=== PATIENT | female | born 1985 | race Caucasian/White ===

== ENCOUNTER 2016-12-01 06:26 | Inpatient (IN) | payer OTHER ==
[2016-12-01] MEDS ORDERED: BRETHINE IVP PRN (07:44)
[2016-12-01] MEDS ORDERED: MINERAL OIL PO PRN (07:44)
[2016-12-01] MEDS ORDERED: BRETHINE SUB-Q PRN (07:44)
[2016-12-01] MEDS ORDERED: ePHEDrine SULFATE IV PRN ×2 (07:44→10:22)
--- NOTE | 2016-12-01 07:55 | History and Physical Report ---
History of Present Illness Date of examination: 12/01/16 Date of admission: 12/01/2016 Chief complaint: Contractions since 2:00 AM this morning. History of present illness: 30 year old presents to L&D at 40 weeks gestation in active labor. Patient reports regular contractions began at 02:00 AM. Patient denies leaking of fluid or vaginal bleeding. Patient reports active movement. EDC 2016. Patient transferred her care from [place] to [facility] during this . Previous LTCS in 2010 in [place]. Previous successful in [place] in 2015. Past History Past Medical History: no pertinent history Past Surgical History: section [employer] History: other (negative) Family/Genetic History: none Social history: , lives with family. denies: smoking, alcohol abuse - Obstetrical History Expected Date of Delivery: 12/01/16 Actual Gestation: 40 Week(s) 0 Day(s) : 4 Para: 2 Hx # Term Pregnancies: 2 Number of Pregnancies: 1 Spontaneous Abortions: 1 Induced : 0 Number of Living Children: 2 Medications and Allergies Allergies Allergy/AdvReac Type Severity Reaction Status Date / Time No Known Allergies Allergy Verified 12/01/16 07:54 Review of Systems Constitutional: no fever, no chills Ears, nose, mouth and throat: no headache Cardiovascular: no edema Respiratory: no cough Gastrointestinal: no nausea, no vomiting Genitourinary: no vaginal bleeding, no leakage of fluid, no genital sores - Vital Signs Vital signs: Vital Signs Pulse BP 90 108/65 12/01/16 07:16 12/01/16 07:16 Temp Pulse Resp BP Pulse Ox 90 108/65 12/01/16 07:16 12/01/16 07:16 - Physical Exam Breasts: Positive: deferred Cardiovascular: Regular rate, No murmurs Lungs: Positive: Clear to auscultation Abdomen: Positive: normal appearance, soft. Negative: distention, tenderness, guarding Genitourinary (Female): Positive: normal external genitalia Vagina: Negative: discharge Cervix: Positive: other (SVE by RN: 5-6/90/-2/cephalic) Uterus: Positive: enlarged. Negative: tender Extremities: Positive: normal. Negative: edema - Obstetrical FHR: category 1 Uterine Contraction Monitor Mode: External Cervical Dilatation: 5.5 (Exam by RN upon patient's arrival to L&D) Cervical Effacement Percentage: 90 station: -2 Uterine Contraction Pattern: Regular Uterine Contraction Intensity: Moderate Results All other labs normal. Assessment and Plan A: at 40 weeks gestation. Previous low transverse section. Previous successful . GBS negative. Active labor. P: Admit. Continuous EFM. Anticipate . Informed Dr. Quezada about patient and active labor status, previous section at 32 weeks gestation, previous successful at term. Dr. Quezada states OK to allow patient to labor and attempt vaginal .
[2016-12-01 08:16] LABS: Hematocrit 35.8 % (30.3-42.9); Hemoglobin 11.9 gm/dl (10.1-14.3); Mean Corpuscular HGB Conc 33 % (30-34); Mean Corpuscular Hemoglobin 30 pg (28-32); Mean Corpuscular Volume 89 fl (79-97); Platelet Count 217 K/mm3 (140-440); Red Blood Count 4.04 M/mm3 (3.65-5.03); Red Cell Distribution Width 14.2 % (13.2-15.2); White Blood Count 9.2 K/mm3 (4.5-11.0)
--- NOTE | 2016-12-01 08:48 | Event Note ---
Date: 12/01/16 SVE /-.
[2016-12-01] MEDS: LACTATED RINGERS 1,000 ML IV SCH ×3 (09:00→10:57)
[2016-12-01] MEDS ORDERED: NARCAN 2 MG/2 ML IV PRN (10:22)
[2016-12-01] MEDS ORDERED: fentaNYL-BUPIV 2 MCG/ML-0.125% 200 MCG/100 ML BAG EPIDURAL SCH (11:00)
--- NOTE | 2016-12-01 11:11 | Event Note ---
Date: 12/01/16 AROM performed to augment labor. Moderate amount of clear fluid obtained. SVE 7 cm, 8 cm with contraction. Baby coming down well with contraction. Patient is comfortable as she has just received epidural. Contractions are regular and moderate. Uterus palpates soft between contractions. Reassuring heart rate tracing.
[2016-12-01] MEDS: PITOCin/NS 20 UNIT/1000ML DRIP 20 UNITS/1,000 ML BAG IV SCH ×2 (15:10→16:30)
[2016-12-01] MEDS ORDERED: TUCKS PAD TP PRN (16:31)
[2016-12-01] MEDS ORDERED: DERMOPLAST TP PRN (16:31)
[2016-12-01] MEDS ORDERED: LANSINOH TP PRN ×2 (16:31)
--- NOTE | 2016-12-01 16:44 | Procedure Note ---
OB Delivery Note - Vaginal Delivery presentation: vertex Delivery position: OA Intrapartum events: none Delivery induction: none Delivery augmentation: rupture of membranes Delivery monitor: external FHT, external uterine Route of delivery: Delivery placenta: spontaneous Delivery cord: 3 umbilical vessels Episiotomy: none Delivery laceration: 2nd degree Delivery repair: vicryl Anesthesia: epidural Delivery comments: Spontaneous vaginal delivery of liveborn female weighing 7 lbs. 4 oz. with apgars of 8/9. Compound presentation; hand presented alongside face. Baby placed immediately on maternal chest after . Spontaneous cry and respirations. Bulb suctioned. 3 vessel cord double clamped and cut after cessation of pulsation. Baby taken to radiant warmer for further suctioning. Placenta delivered spontaneously and intact by johnson mechanism. Fudus firm and midline. Pitocin added to IV fluids after delivery of placenta. 2nd degree perineal laceration repaired with 2-0 vicryl in usual sterile fashion. Sponge count correct. Vaginal sweep negative. EBL 350 ml. Mother and baby stable in birthing room.
[2016-12-01] MEDS ORDERED: SODIUM CHLORIDE FLUSH SYRINGE 10 ML IV SCH (17:00)
[2016-12-01] MEDS: MOTRIN PO SCH ×2 (18:03→23:53)
[2016-12-01] MEDS: CLEOCIN PO SCH (20:19)
[2016-12-01] MEDS: COLACE PO SCH (21:33)
[2016-12-01] MEDS: NORCO 5/325 PO PRN (21:37)
[2016-12-02] MEDS: MOTRIN PO SCH (05:33)
[2016-12-02] MEDS ORDERED: BOOSTRIX IM ONE (06:00)
[2016-12-02 06:25] LABS: Hematocrit 24.5 % (30.3-42.9); Hemoglobin 8.3 gm/dl (10.1-14.3)
--- NOTE | 2016-12-02 08:28 | Progress Note ---
Assessment and Plan A: day 1 S/P spontaneous vaginal delivery on 12/01/16. Anemia. P: Continue po iron. Advised patient regarding iron rich diet. Anticipate discharge tomorrow. Subjective - Subjective Date of service: 12/02/16 Principal diagnosis: day 1 S/P spontaneous vaginal delivery on Interval history: day 1 S/P spontaneous vaginal delivery of liveborn female on . Patient is doing well. /bottlefeeding. Patient reports small amount of lochia and no large clots. She is ambulating well and voiding without difficulty. She is tolerating a regular diet without nausea or vomiting. Patient denies headache, cough, shortness of breath, chest pain, abdominal pain, leg pain, heavy vaginal bleeding, foul smelling discharge, symptoms of depression, or dizziness/lightheadedness. Patient is undecided regarding contraception. Patient reports: appetite normal, voiding normally, pain well controlled, ambulating normally [place]: doing well Objective - Vital Signs Latest vital signs: Vital Signs Temp Pulse Resp BP BP Pulse Ox 12/02/16 00:00 98.2 F 76 18 102/67 12/01/16 21:00 98.9 F 74 18 103/63 12/01/16 17:40 98.1 F 81 18 109/69 12/01/16 15:00 98 H 98 12/01/16 14:55 64 84 12/01/16 14:50 103 H 100 12/01/16 14:45 109 H 100 12/01/16 14:40 89 99 12/01/16 14:35 97 H 98 12/01/16 14:30 100 H 99 12/01/16 14:25 83 98 12/01/16 14:20 88 98 12/01/16 14:15 84 99 12/01/16 14:10 94 H 99 12/01/16 14:05 97 H 98 12/01/16 14:00 90 99 12/01/16 13:55 85 99 12/01/16 13:50 86 99 12/01/16 13:45 89 98 12/01/16 13:39 107 H 100 12/01/16 13:34 103 H 100 12/01/16 13:32 89 84 12/01/16 13:29 85 99 12/01/16 13:24 87 99 12/01/16 13:19 88 99 12/01/16 13:14 98 H 100 12/01/16 13:09 82 99 12/01/16 13:04 83 99 12/01/16 12:59 86 99 12/01/16 12:54 91 H 99 12/01/16 12:49 95 H 99 12/01/16 12:44 87 100 12/01/16 12:39 87 98 12/01/16 12:34 90 98 12/01/16 12:29 98 H 99 12/01/16 12:24 109 H 98 12/01/16 12:19 86 98 12/01/16 12:14 90 99 12/01/16 12:09 92 H 98 12/01/16 12:04 96 H 98 12/01/16 11:59 104 H 99 12/01/16 11:54 99 H 98 12/01/16 11:49 102 H 98 12/01/16 11:44 88 99 12/01/16 11:39 103 H 99 12/01/16 11:34 94 H 98 12/01/16 11:29 89 98 12/01/16 11:24 102 H 98 12/01/16 11:19 110 H 100 12/01/16 11:14 103 H 98 12/01/16 11:09 105 H 99 12/01/16 11:04 99 H 98 12/01/16 10:59 96 H 99 12/01/16 10:54 98 H 99 12/01/16 10:52 98 H 106/62 12/01/16 10:49 104 H 98 12/01/16 10:45 99 H 104/61 12/01/16 10:44 91 H 97 12/01/16 10:39 86 102/61 99 12/01/16 10:34 110 H 99 12/01/16 10:33 103 H 107/65 12/01/16 10:32 96 H 108/65 12/01/16 10:09 97.8 F 97 H 18 111/73 12/01/16 09:03 97 H 111/73 Intake and Output 12/01/16 12/02/16 12/02/16 22:59 06:59 14:59 Intake Total 120 240 Output Total 600 500 Balance -480 -260 Intake: Oral 120 Intake, Free Water 240 Output: Urine 600 500 Void 600 500 Other: Total, Intake Amount 120 Total, Output Amount 600 500 Estimated Blood Loss 350 - Exam Breasts: Present: deferred Cardiovascular: Present: Regular rate, No murmurs Lungs: Present: Clear to auscultation Abdomen: Present: normal appearance, soft. Absent: distention, tenderness, guarding Uterus: Present: normal, firm, fundal height below umbilicus. Absent: bogginess , tenderness Extremities: Present: normal. Absent: edema - Labs Labs: Abnormal lab results 12/02/16 Range/Units 04:31 Hgb 8.3 L D (10.1-14.3) gm/dl Hct 24.5 L D (30.3-42.9) %
[2016-12-02] MEDS: NORCO 5/325 PO PRN (09:03)
[2016-12-02] MEDS: CLEOCIN PO SCH ×2 (09:04→17:22)
[2016-12-02] MEDS ORDERED: FEOSOL PO SCH (10:00)
[2016-12-02] MEDS: COLACE PO SCH (12:36)
--- NOTE | 2016-12-02 16:58 | Discharge Summary ---
Providers - Providers Date of Admission: 12/01/16 07:47 Date of discharge: 12/02/16 Attending physician: Dr. Quezada None Primary care physician: Mitch [facility] Hospitalization Reason for admission: active labor Delivery: , Episiotomy: none Laceration: 2nd degree Other procedures: none complications: none Discharge diagnosis: IUP at term delivered, [place] baby: female Pertinent studies: Labs Hospital course: Normal hospital course Condition at discharge: Good Disposition: DC-01 TO HOME OR SELFCARE - Discharge Diagnoses (1) Term delivered Status: Acute Plan - Provider Discharge Summary Activity: no sex for 6 weeks, no heavy lifting 4 weeks, no strenuous exercise Diet: routine Instructions: routine Additional instructions: Call your doctor immediately for: * Fever > 100.5 * Heavy vaginal bleeding ( >1 pad per hour) * Severe persistent headache * Shortness of breath * Reddened, hot, painful area to leg or breast - Follow up plan Follow up: DELORES CONSTANTINO CNM [Advanced Practice Nurse] - 6 Weeks
[2016-12-02 17:33] VITALS: BP 110/73
== END 2016-12-02 20:30 | disposition home or self-care (01) | DRG 775 ==
LOC: TRG 06:26 → LD 07:47 → OB 17:45
PROVIDERS: ADMIT Obstetrics & Gynecology; ATTEND Obstetrics & Gynecology
PROC: 10E0XZZ Delivery of Products of Conception, External Approach (ICD-10-PCS; principal; 2016-12-01)
PROC: 0KQM0ZZ Repair Perineum Muscle, Open Approach (ICD-10-PCS; 2016-12-01)
PROC: 3E0S3CZ (ICD-10-PCS; 2016-12-01)
PROC: 00HU33Z Insertion of Infusion Device into Spinal Canal, Percutaneous Approach (ICD-10-PCS; 2016-12-01)
PROC: 10907ZC Drainage of Amniotic Fluid, Therapeutic from Products of Conception, Via Natural or Artificial Opening (ICD-10-PCS; 2016-12-01)
PROC: 3E0234Z Introduction of Serum, Toxoid and Vaccine into Muscle, Percutaneous Approach (ICD-10-PCS; 2016-12-01)
DX: O34.211 Maternal care for low transverse scar from previous cesarean delivery (principal); O32.6XX0 Maternal care for compound presentation, not applicable or unspecified; O70.1 Second degree perineal laceration during delivery; O99.03 Anemia complicating the puerperium; Z37.0 Single live birth; Z3A.40 40 weeks gestation of pregnancy; Z23 Encounter for immunization
CPT/HCPCS: 36415; 85014; 85018; 85027; 86850; 86900; 86901; 90471; 90715; J2590; J7120